=== PATIENT | male | born 1980 | race Caucasian/White ===

== ENCOUNTER 2025-09-28 09:16 | Emergency (ER) | payer SELFPAY ==
[2025-09-28 09:18] VITALS: BP 158/92; PULSE 83; RESP 22; TEMP 36.8; O2SAT 98
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
--- OUTSIDE RECORDS SUMMARY | 2025-09-28 09:44 | XMS_ITS | Clinical Summary ---
[facility] Address [address] [place] [address] Care Team Providers Care Cotton Breeder Name Role Phone Provider, No Known Primary Care Provider [phone] Allergies Active Allergy Reactions Criticality Noted Date Comments Red Dye #40 (Allura Red) Rash Low 03/04/2023 Medications ondansetron ODT (ZOFRAN-ODT) 8 MG disintegrating tabletIndications:G astroenteritis Place 1 tablet on the tongue Every 8 (Eight) Hours As Needed for Nausea. 15 tablet Active Immunizations Immunization Administration Dates Next Due Tdap 06/24/2021 Social History Tobacco Use Types Packs/Day Years Used Date Smoking Tobacco: Every Day Cigarettes Smokeless Tobacco: Current Chew Alcohol Use Standard Drinks/Week Comments Never 0 (1 standard drink = 0.6 oz pur e alcohol) AUDIT-C Answer Date Recorded Q1: How often do you have a drink containing alc ohol? Never 06/24/2021 Average Number of Drinks Not on file 021 Frequency of Binge Drinking Not on file 05/29 Abuse Screen Answer Date Recorded Unsafe at Home or Work/School Not on file Feels Threatened by Someone? Not on file Does Anyone Keep You from Co ntacting Others or Doint Things Outside the Home? Not on file 09/09/2023 Physical Sign of Abuse Present Not on file 1 Housing Stability Answer Date Recorded Current Living Arrangements Not on file 08/28 Potentially Unsafe Housing Conditions Not on fabiola e 09/09/2023 Family and Community Support Answer Hi e Recorded Help with Day-to-Day Activities Not on file 09/09/2023 Lonely or Isolated Not on file 09/09/2023 Employment Answer Date Recorded Do you want help finding or keeping work or a criselda b? Not on file 09/09/2023 Disabilities Answer Date Recorded Concentrating, Remembering, or Making Decisions Difficulty Not on file 09/09/2023 Doing Errands Independently Difficulty Not on fi le 09/09/2023 Education Answer Date Recorded Help with school or training? Not on file Preferred Language Not on file 09/09/2023 Sex and Gender Information Value Date Recorded Sex Assigned at Not on file Legal Sex Male 11:15 AM EDT Gender Identity Not on file Sexual Orientation Not on file Last Filed Vital Signs Vital Sign Reading Time Taken Comments Blood Pressure 130/88 07/01/2023 10:51 AM EDT Pulse 91 07/01/2023 10:51 AM EDT Temperature 37.1 C (98.7 F) 07/01/2023 10:51 AM EDT Respiratory Rate 20 07/01/2023 10:51 AM EDT Oxygen Saturation 97% 07/01/2023 10:51 AM EDT Inhaled Oxygen Concentration - - Weight 137 kg (303 lb) 07/01/2023 10:51 AM EDT Height 185.4 cm (6' 1 ) 07/01/2023 10:51 AM EDT Body Mass Index 39.98 07/01/2023 10:51 AM EDT Plan of Treatment Health Maintenance Due Date Last Done Comments ANNUAL PHYSICAL 1982 HEPATITIS C SCREENING 1982 INFLUENZA VACCINE 06/28/2025 TDAP/TD VACCINES (2 - Td or Tdap) 06/24/2031 021 Pneumococcal Vaccine 0-49 Aged Out No longer eligible based on patient's age to complete this topic Insurance [facility] [employer] Member Subscriber Plan / Payer (Ef fective 2021-Present) Name:Noah Mayberry Relation to Subscriber:Self Name:Noah Mayberry Payer ID:[id number] Group ID:Not on file Type:Not on file Address: [facility] [address] [place] [address] Care Teams Cotton Breeder Relationship Specialty Start Date End Date Provider, No Known [facility] [place] [address] PCP - General 06/24/21
[2025-09-28] MEDS: ACETAMINOPHEN 500MG TAB 1000 MG PO (09:56)
[2025-09-28 10:42] VITALS: BP 131/79; PULSE 81; RESP 20; TEMP 36.8; O2SAT 93
== END 2025-09-28 10:43 | disposition home or self-care (01) ==
PROVIDERS: Emergency Provider Student in an Organized Health Care Education/Training Program
DX: M25.511 Pain in right shoulder (principal); M62.830 Muscle spasm of back; V47.5XXA Car driver injured in collision with fixed or stationary object in traffic accident, initial encounter
CPT/HCPCS: 71045; 73030; 99284